=== PATIENT | male | born 1955 | race Caucasian/White ===

== ENCOUNTER 2016-07-03 06:21 | Inpatient (IN) ==
[2016-07-03] MEDS ORDERED: Lidocaine -MPF 1% 2 ML VIAL ID ONE (06:47)
[2016-07-03] MEDS ORDERED: CeFAZolin Pre 2,000 MG/100 ML 2,000 MG/100 ML BAG IVPB ONE (06:47)
--- NOTE | 2016-07-03 07:06 | History & Physical Report ---
Date of Encounter: 07/03/16 Time of Encounter: 07:06 24 Hour HP Update - Instructions Instructions: If the History and Physical is less than 30 days old and was completed prior to A.M. admission and or procedure and has NOT been updated on calendar day of procedure please complete this update prior to performing procedure. - Update Patient reports changes in Medical Condition: No Changes in assessment/condition: No Changes in Medication: No Preop tests/diagnostics Reviewed: Yes Surgery Remains Indicated: Yes Consent for Planned Operative Procedure(s) Verified: Yes - Pre-Operative Checklist Preoperative Checklist Indicated: Yes Prophylactic Antibiotic Ordered: Yes Home Medications Include Beta Alycia: No Is VTE Prophylaxis Indicated?: Yes
[2016-07-03] MEDS ORDERED: Lidocaine -MPF 2% 2 ML VIAL ONE (07:17)
[2016-07-03] MEDS ORDERED: *HR* FentaNYL (PF) 100 MCG/2 ML VIAL ONE (07:17)
[2016-07-03] MEDS ORDERED: Lidocaine -MPF 4% 5 ML AMPUL ONE (07:17)
[2016-07-03] MEDS ORDERED: Dexamethasone 4 MG/ML VIAL ONE (07:17)
[2016-07-03] MEDS ORDERED: *HR* Rocuronium Bromide 50 MG/5 ML VIAL ONE (07:17)
[2016-07-03] MEDS ORDERED: Neostigmine Methylsulfate 3 MG/3 ML SYRINGE ONE (07:17)
[2016-07-03] MEDS ORDERED: Ondansetron 4 MG/2 ML VIAL ONE (07:17)
[2016-07-03] MEDS ORDERED: *HR* Midazolam HCl 2 MG/2 ML VIAL ONE (07:18)
[2016-07-03] MEDS ORDERED: *HR* Propofol 200 MG/20 ML VIAL IVP ONE (07:18)
--- NOTE | 2016-07-03 07:23 | Anesthesia Evaluation PreOp ---
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 HX Other Medical History: Other (prostate cancer) Anesthesia History: No Prior Anesthetic Complications Alcohol Use: none Drug use: none Medications and Allergies Aspirin 81 mg PO DAILY 07/03/16 [History] Aspirin/Sod Bicarb/Citric Acid [Nikki-[place] Original Tab Eff] 1 tab PO DAILY [History] Fluticasone Propionate Nasal [Flonase] 1 spray NS DAILY 07/03/16 [History] Glucosamn/Condroitn/C/Mn/[place] [[facility] Glucosamine Chondroitin Tb] 1 tab PO DAILY 07/03/16 [History] Lisinopril [Zestril] 20 mg PO DAILY 07/03/16 [History] Naproxen Sodium [Aleve] 220 mg PO BID 07/03/16 [History] Simvastatin [Zocor] 20 mg PO QPM 07/03/16 [History] Tamsulosin [Flomax] 0.4 mg PO DAILY 07/03/16 [History] Allergies No Known Allergies Allergy (Verified 01/11/15 09:57) - Meds/Allergy Pre-op Review Medications Reviewed: Yes Allergies Reviewed: Yes Beta Blockers on Current Med List: No Anesthesia Results - Labs Laboratory Tests 06/17/16 06/17/16 09:42 09:42 WBC 6.4 Hgb 14.8 Hct 43.5 Plt Count 256 Sodium 139 Potassium 3.9 Chloride 105 Carbon Dioxide 27 BUN 16 Creatinine 0.81 Est GFR ( Amer) > 60 Est GFR (Non-Af Amer) > 60 BUN/Creatinine Ratio 20 Glucose 88 Calculated Osmolality 289 Calcium 9.5 - Imaging EKG: report reviewed, image reviewed (SB; possible RV conduction delay; nonspecific T wave abnormality) Anesthesia Exam Last Vital Signs Temp 98.1 F 07/03/16 06:40 Pulse 61 07/03/16 06:40 Resp 18 07/03/16 06:40 BP 135/83 07/03/16 06:40 Pulse Ox 96 07/03/16 06:40 Weight: 94 kg NPO (# of Hours): >> 8 hrs - HEENT Pupil (Motor): Pupils equal, EOMI Mallampati: I Teeth: Normal Oral Opening: Greater than 3 - LONG LINE TEAMSTER LOC: Oriented LONG LINE TEAMSTER Motor: Normal RUE, Normal LUE, Normal RLE, Normal LLE, Normal Face LONG LINE TEAMSTER Sensory: Normal: RUE, LUE, RLE, LLE, Face - Cardiac Rhythm: Regular Murmur: None - Pulmonary Breath Sounds: bilateral Clear Respiratory Effort: Symmetrical Anesthesia Assess/Plan ASA Score: 3 (prostate CA, HTN) Modified Okay Scale for Level of Consciousness: Cooperative, oriented, and tranquil Anesthetic Plan: General, Precautions (Large bore IV) Monitoring Plan: Standard Monitors Recovery Plan: PACU
[2016-07-03] MEDS ORDERED: Ringers Solution, Lactated 1,000 ML IVC SCH ×2 (07:30→11:45)
[2016-07-03] MEDS ORDERED: *HR* Phenylephrine 10 MG/ML VIAL ONE (08:25)
[2016-07-03] MEDS ORDERED: EPHEDrine 50 MG/ML VIAL ONE (10:04)
[2016-07-03] MEDS ORDERED: *HR* HYDROmorphone 2 MG/ML SYRINGE ONE ×2 (11:09→11:41)
[2016-07-03] MEDS ORDERED: *HR* Promethazine 25 MG/ML VIAL IVP PRN (11:37)
--- NOTE | 2016-07-03 11:57 | Operative Note ---
Date of procedure: 07/03/16 Pre-op diagnosis: Prostate cancer Post-op diagnosis: same Procedure: Robotic assisted radical prostatectomy. Implants: 20 Latvian Davis catheter. Complications: None. Anesthesia: ANJELICAA Surgeon: Breezy Schmid Estimated blood loss (cc): 100 Specimen: prostate, tissue near seminal vesical, vas deferens Condition: stable Disposition: PACU Procedure in Detail: INDICATIONS FOR PROCEDURE: Mr. Olivera is a 60 year-old male with history of elevated PSA. He was found on prostate needle biopsy to have [place] 3+4 prostate cancer along the right side. He is now presenting for robotic assisted prostatectomy. He was informed of the risks of the procedure including but not limited to bleeding, infection, injury to other structures, need for further procedures, lymphocele, urinary incontinence, urine leak, erectile dysfunction, bladder neck contracture, rectal injury, and the risk of anesthesia. He is willing to proceed. PROCEDURE: After informed consent was obtained, the patient was taken to the operating room, placed supine on the table. He was given IV antibiotics for antibiotic coverage. He had DIEGO's and SCD's placed on the lower extremities for DVT prophylaxis. Induction of general anesthesia was performed. The arms were tucked and he was placed in lithotomy position. He was secured to the OR table with padding. An 18 Latvian Davis catheter was placed. A 10mm incision was made just infraumbilically. The Veress needle was introduced. The water drop test passed. Pneumoperitoneum was initiated with low pressures initially. The abomen was insufflated. I then placed a 12mm camera port through this incision using the visual obturator and the 8 mm robotic camera.. Once the trocar was in place, the camera for the robot was placed in the field and remaining trocars were placed. Robotic ports were placed x 2 on the right side. We placed another robotic port to the left of the umbilicus. We also placed a 12mm port in the left lower quadrant. Once all trocars were in place, the robot was docked to the patient and the monopolar scissors were placed on the right robotic arm. The bipolar [place] was in the left robotic arm and the Prograsp in the 4th arm. We initially retracted the bowel with the 4th arm. The medial umbilical ligaments were cauterized and the bladder was taken down off the anterior abdominal wall using electrocautery. The bladder was then grasped with a 4th arm and retracted cephalad. We then swept the periprostatic fat off the prostate as well as the pelvic sidewall. We then incised the endopelvic fascia on both sides and carried the incision up to the prostatic apex, sweeping the levator fibers off of the prostate. The puboprostatic ligaments were carefully incised. We then placed an 0 Vicryl suture through the dorsal venous complex and tied it down with a surgeon's knot. Once the dorsal venous complex was ligated, we then turned our attention to the bladder neck which was incised with the monopolar cautery until the catheter was visualized at the bladder neck. The balloon of the catheter was deflated. It was brought out of the bladder and retracted anteriorly using the fourth arm. The posterior bladder neck was then opened using the cautery until the space between the prostate and the bladder neck was visualized. The posterior aspect of the prostate was dissected down carefully using electrocautery. The vas deferens and seminal vesicals were encountered. The vas deferens were cauterize and divided. We pulled the seminal vesicles up into the field to help retract the prostate in cephalad direction. Denonvillier's fascia was dissected off the prostate posteriorly. We then began releasing the lateral prostatic fascia, first on the right side. The neurovascular bundles with minimal use of cautery to do a good nerve sparing approach. After the right neurovascular bundle was released, I carefully divided the pedicles using multiple Hem-o-veto clips to clip the larger prostatic pedicle. An identical procedure was performed on the left side to release the neurovascular bundles. Once both neurovascular bundles were released, the posterior attachments were released sharply between the prostate and the rectum. We then used the 4th arm to place the prostate on stretch in cephalad direction. We then transected the dorsal venous complex and then with cold scissors cut across the urethra until the catheter was visualized. The catheter was removed and the posterior urethra was transected. The prostate was then placed in an Endo Catch bag. The pedicles were identified and cautery was utilized to minimize any bleeding and control it. A stitch was placed posterior to the bladder and posterior to the urethra using a 2-0 Vicryl. This took some tension off the bladder neck in order to achieve a good anastomosis. The urethral vesicle anastomosis was then performed with a 3-0 V-Veto suture in running fashion starting at 6 o'clock position. With two sutures tied together we then ran the right side up about care home. The left side was then run around until the bladder was reanastamosed to the urethra. The final 20 Latvian catheter was placed into the bladder and balloon filled with 15 mL of sterile water. The bladder was irrigated. No leak was identified. A 19 Latvian Chan drain was placed through the trocar down into the pelvis. The trocar was removed and drain sewn in place with a suture. The robot was then undocked from the patient. I was able to place my finger from the camera wound across the abdomen to grasp the Endocatch bag and bring the suture to the umbilical wound. After extending the incision slightly with the electrocautery the EndoCatch bag was then removed from the camera port. The abdominal fascia was then closed in running fashion with 0 Vicryl suture. All incisions were instilled with 0.25 % Marcaine. The remaining trocars were removed under direct vision and all incisions were then closed with 4-0 Monocryl in subcuticular fashion. The patient was then awakened from general anesthesia and brought to the recovery room in good condition. All sponge, needle, and instrument counts were correct. In moving the patient to his bed, I did not have his drain on his abdomen. It was then pulled out accidentally. The wound was then covered with a dressing.
[2016-07-03] MEDS: *HR* HYDROmorphone (PF) 1 MG/ML SYRINGE IVP PRN ×3 (12:05→12:24)
--- NOTE | 2016-07-03 13:04 | Anesthesia Evaluation Post Op ---
Date of Encounter: 07/03/16 Time of Encounter: 13:04 - Vital Signs Vital Signs: Vital Signs/O2 Sat, Most Current Temp Pulse Resp BP Pulse Ox 97.0 F L 633 16 106/57 96 07/03/16 12:51 07/03/16 12:51 07/03/16 12:51 07/03/16 12:51 07/03/16 12:51 - Lungs Lungs: Clear Ascult./Percussion - Airway Airway: Non-obstructed - Cardiovascular Regular Rate - Mental Status Mental Status: Alert & Oriented, Answers Appropriately - Pain Pain Scale: 4 - Nausea Vomiting Nausea Vomiting: Not Present - Hydration Hydration: Tolerates oral liquids, Davis catheter - Discharge PostOp Status: Transfer Patient to floor
[2016-07-03] MEDS ORDERED: Acetaminophen 325 MG TABLET PO PRN (13:30)
[2016-07-03] MEDS ORDERED: Naloxone 0.4 MG/ML INJ IVP PRN (13:30)
[2016-07-03] MEDS ORDERED: Ondansetron 4 MG/2 ML VIAL IVP PRN (13:30)
[2016-07-03] MEDS ORDERED: *HR* HYDROmorphone (PF) 1 MG/ML SYRINGE IVP PRN (13:30)
[2016-07-03] MEDS ORDERED: Metoclopramide 10 MG in 0.9 % Sodium Chloride 50 ML IVPB PRN (13:30)
[2016-07-03] MEDS ORDERED: Ketorolac 15 MG/ML VIAL IVP SCH (13:30)
[2016-07-03] MEDS ORDERED: *HR* OxyCODONE Immed Rel 5 MG TABLET PO PRN (13:30)
[2016-07-03] MEDS: 0.9 % Sodium Chloride 1,000 ML IVC SCH (14:12)
[2016-07-03] MEDS ORDERED: Ketorolac 15 MG/ML VIAL IVP PRN (16:43)
[2016-07-03] MEDS ORDERED: Famotidine 20 MG TABLET PO PRN (16:44)
[2016-07-03] MEDS: *HR* Heparin 5,000 UNIT/ML VIAL SQ SCH (17:07)
[2016-07-04] MEDS: 0.9 % Sodium Chloride 1,000 ML IVC SCH (01:19)
[2016-07-04] MEDS: *HR* Heparin 5,000 UNIT/ML VIAL SQ SCH (05:55)
[2016-07-04 07:00] LABS: Basophils % 0.1 %; Eosinophils % 0.2 %; Hematocrit 35.9 % (37.5-50.1); Hemoglobin 12.1 g/dL (12.9-16.9); Immature Granulocytes % 0.3 % (0-4); Lymphocytes # 1.9 K/mcL (0.6-4.6); Lymphocytes % 20.2 %; Mean Corpuscular HGB Conc 33.7 g/dL (31.6-35.5); Mean Corpuscular Volume 88.9 fL (83.0-100.0); Mean Platelet Volume 10.1 fL (9.4-12.4); Monocytes # 0.8 K/mcL (0.0-1.3); Monocytes % 8.8 %; Neutrophils # 6.5 K/mcL (1.6-8.9); Platelet Count 211 K/mcL (140-400); Red Blood Count 4.04 M/mcL (4.19-5.50); Red Cell Distribution Width 12.9 % (11.5-14.5); Segmented Neutrophils % 70.4 %
[2016-07-04 07:05] LABS: Calcium 8.3 mg/dL (8.6-10.8); Chloride 107 mEq/L (98-109); Potassium 3.9 mEq/L (3.5-4.5); Sodium 138 mEq/L (136-145)
--- NOTE | 2016-07-04 07:09 | Discharge Summary ---
Date of Encounter: 07/03/16 Time of Encounter: 07:07 - Discharge Diagnosis (1) Prostate cancer Priority: Primary Status: Acute - Discharge Medications Prescriptions: Ciprofloxacin HCl [Cipro] 500 mg PO ONCE #1 tablet Docusate [Colace] 100 mg PO BID #60 capsule Oxycodone HCl/Acetaminophen [Percocet 5-325 mg Tablet] 1 each PO Q4H PRN #25 tablet PRN Reason: Pain Home Medications: Aspirin 81 mg PO DAILY 07/03/16 [History] Aspirin/Sod Bicarb/Citric Acid [[place]ki[place] Original Tab Eff] 1 tab PO DAILY [History] Fluticasone Propionate Nasal [Flonase] 1 spray NS DAILY 07/03/16 [History] Glucosamn/[place]n/C/Mn/[place] [[facility] Glucosamine Chondroitin Tb] 1 tab PO DAILY 07/03/16 [History] Lisinopril [Zestril] 20 mg PO DAILY 07/03/16 [History] Naproxen Sodium [Aleve] 220 mg PO BID 07/03/16 [History] Simvastatin [Zocor] 20 mg PO QPM 07/03/16 [History] Tamsulosin [Flomax] 0.4 mg PO DAILY 07/03/16 [History] Ciprofloxacin HCl [Cipro] 500 mg PO ONCE #1 tablet 07/04/16 [Rx] Docusate [Colace] 100 mg PO BID #60 capsule 07/04/16 [Rx] Oxycodone HCl/Acetaminophen [Percocet 5-325 mg Tablet] 1 each PO Q4H PRN #25 tablet 07/04/16 [Rx] Allergies/Adverse Reactions: Allergies No Known Allergies Allergy (Verified 01/11/15 09:57) Labs on day of discharge: Labs from last 24 hours 07/04/16 05:41 Sodium 138 Potassium 3.9 Chloride 107 Calcium 8.3 L Date of admission: 07/03/16 13:29 Primary care physician: Jennifer Liu CNP Discharging clinician: Breezy Schmid Anticipated date of discharge: 07/04/16 - Patient Status Disposition: Home, Self-Care Condition: Good Functional capacity at discharge: independent ambulation Overall status at discharge: patient is progressing back to baseline - Discharge Instructions Follow Up With: Breezy Schmid MD [Partnered Physician] - (1 week for voiding trial.) Additional Instructions: 1. No heavy lifting > 20# x 2 weeks. 2. Hold ASA x 1 week. Ibuprofen or alleve is okay. 3. Catheter care instructions. Please provide leg bag, leg strap, and night bag. 4. Okay to shower. No tub baths x 2 weeks. 5. He should call or return for any fevers, chills, nausea, emesis, worsening hematuria, or redness around any incsions. - Diet and Activity Activity: increase activity as tolerated Diet: advance to your usual diet - Hospital Course Hospital course: Mr. Olivera is a 60 year old male who has a history of prostate cancer. He underwent a robotic assisted radical prostatectomy on 07/03/2016. He did well after surgery. On POD #1 he was tolerating diet and ambulating well. His pain was well controlled. He was discharged later that day. - Time Spent with Patient Total time spent providing and/or coordinating discharge services: Less than 30 minutes Exam Initial Vital Signs Temp Pulse Resp BP Pulse Ox 98.1 F 61 18 135/83 96 07/03/16 06:40 07/03/16 06:40 07/03/16 06:40 07/03/16 06:40 07/03/16 06:40 - General physical appearance Present: well developed, well nourished, no distress - Eyes Absent: icteric - ENT Present: normal nares - Neck Present: trachea midline - Respiratory Present: normal respiratory effort - Cardiovascular Cardiovascular exam IM: RRR - Abdomen Abdomen: Present: soft (incisions were clean, dry, and intact. ) - Genitourinary normal penis with no external lesions (Urine was clear. Catheter in good position.) - VTE Documentation of Mechanical Device: Graduated compression elastic hosiery
[2016-07-04] MEDS ORDERED: Lisinopril 20 MG TABLET PO SCH (09:00)
[2016-07-04] MEDS ORDERED: Fluticasone Propionate Nasal 50 MCG/SPRAY BOTTLE NS SCH (09:00)
[2016-07-04 09:01] LABS: BUN/Creatinine Ratio 16 (6-26); Blood Urea Nitrogen 12 mg/dL (8-26); Carbon Dioxide 24 mEq/L (19-29); Glucose 91 mg/dL (70-99); Osmolality,Calculated 285 (280-300); eGFR For African Americans > 60 (> 60); eGFR For Non-African Americans > 60 (> 60)
[2016-07-04 11:28] VITALS: BP 136/71
== END 2016-07-04 14:13 | disposition home or self-care (01) | DRG 708 ==
LOC: SAMDAY 06:21 → 3ANU 13:29
PROVIDERS: ADMIT Urology; ATTEND Urology